=== PATIENT | female | born 1980 | race Caucasian/White ===

== ENCOUNTER 2019-12-20 09:27 | Emergency (ER) | payer OTHER, SELFPAY ==
[2019-12-20 09:28] VITALS: BP 147/100; PULSE 104; RESP 18; TEMP 36.9; O2SAT 98; BMI 27.4
--- NOTE | 2019-12-20 10:08 | ED.DCSUM_ITS ---
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 Tetanus is up-to-date. Past Medical History - Allergies and Home Meds Allergies/Adverse Reactions: Allergies latex Allergy (Verified 12/20/19 09:32) Itching Primary Care Physician: Care Physician,No Primary [Primary Care Provider] - Smoking Status: Former smoker Review of Systems General: Denies: Chills, Fever, Sweats Eyes: Denies: Visual changes - bilaterally, Diplopia ENT: Denies: Rhinorrhea, Sore throat Cardiovascular: Denies: Chest pain, Palpitations Respiratory: Denies: Dyspnea, Cough, Dyspnea on exertion Gastrointestinal: Denies: Abdominal pain, Nausea, Vomiting, Diarrhea, Melena, Hematochezia Genitourinary: Denies: Dysuria, Hematuria, Frequency Musculoskeletal: Denies: Back pain, Extremity Pain Skin: Denies: Rash, Wounds Neurological: Denies: Headache, Weakness, Numbness Physical Exam Vital Signs/Narrative: Vital Signs Temp Pulse Resp BP Pulse Ox 12/20/19 09:28 98.5 F 104 H 18 147/100 H 98 Inital Vital Signs reviewed: Yes General: Well nourished, Well developed, No Acute Distress Head: Normocephalic, Atraumatic Eyes: Perrl, EOMI ENT: Moist mucous membranes, No rhinorrhea Neck: Supple, Nontender Cardiovascular: Regular rate, Regular rhythm, No murmurs Respiratory: No distress, CTA bilaterally, Chest nontender Abdomen: Soft, Nontender, Nondistended, Normal bowel sounds Back: Nontender, Normal Inspection Extremities: No edema, - - There is a 2.5 cm laceration over the PIP joint of the left index finger over the dorsal surface. Extensor mechanism is functionally intact. Skin: Normal color, No rash Neurological: Alert, Oriented x3, Cranial nerves II-XII grossly intact, Normal Strength, Normal Sensation Psychological: Normal affect, Normal Mood Diagnostic/Tx/Re-eval - Medical Decision Making Wound was locally anesthetized with 1% lidocaine with epinephrine. Turnicot was used to create a bloodless field. Upon visualization of the wound the extensor tendon is seen. There appears to be a partial-thickness laceration of the extensor tendon with about 75% of the involved. Wound was washed with Shur- Clens and irrigated with 300 cc of sterile saline. It was closed using 5 interrupted 4-0 Ethilon sutures. Patient was placed in a finger splint. She wi ll be referred to hand surgery. ED Disposition - Plan for ED Patient: Disposition: Home or Assisted Living Diagnosis: Finger laceration, Extensor tendon laceration of finger with open wound Instructions: LACERATION, Hand, LACERATION, Tendon Prescriptions: Cephalexin [Keflex] 500 mg PO Q6 #20 cap Prescription Printed Additional Instructions: Please call [facility] hand surgeons at and inform them that you sustained a work-related extensor tendon laceration of your finger.
== END 2019-12-20 10:25 | disposition home or self-care (01) ==
PROVIDERS: Emergency Provider Emergency Medicine
DX: S66.321A Laceration of extensor muscle, fascia and tendon of left index finger at wrist and hand level, initial encounter (principal); S61.211A Laceration without foreign body of left index finger without damage to nail, initial encounter; W27.8XXA Contact with other nonpowered hand tool, initial encounter; Y93.9 Activity, unspecified; Y92.9 Unspecified place or not applicable; Y99.0 Civilian activity done for income or pay; Z91.040 Latex allergy status; Z87.891 Personal history of nicotine dependence
CPT/HCPCS: 12001; 99284

== ENCOUNTER → 2025-01-23 | Outpatient (CLI) | payer OTHER, SELFPAY ==
--- NOTE | 2025-01-23 13:43 | BI_ITS ---
PROCEDURE: SCRN MAMM (CAD)W/SARANYA BILAT REASON FOR EXAM: F, Age 45 y/o , SCREENING. Aunt with breast cancer. TECHNIQUE: Bilateral screening digital breast tomosynthesis with 2D and 3D images. Computer aided detection. COMPARISON: None. This is a baseline mammogram. FINDINGS: The breasts are extremely dense which lowers the sensitivity of mammography. There is a 2.1 cm x 2.7 cm well-defined nodule in the deep upper lateral aspect of the left breast. Correlation with ultrasound is recommended. BI/SCRN MAMM (CAD)W/SARANYA BILAT IMPRESSION: BI-RADS 0: INCOMPLETE - NEED ADDITIONAL IMAGING EVALUATION. Follow-up code: Ultrasound Recommended The patient will be notified of the results by letter. Reading Location: [place] [address]
== END | disposition home or self-care (01) ==
LOC: OPBI 13:40
PROVIDERS: PCP Nurse Practitioner Adult Health; Referring Provider Nurse Practitioner Adult Health; Visit Provider Nurse Practitioner Adult Health
DX: Z12.31 Encounter for screening mammogram for malignant neoplasm of breast (principal)
CPT/HCPCS: 77063; 77067

== ENCOUNTER → 2025-01-30 | Outpatient (CLI) | payer OTHER, SELFPAY ==
--- NOTE | 2025-01-30 12:29 | US_ITS ---
PROCEDURE: BREAST LIMITED UNILATERAL REASON FOR EXAM: ABN MAMM Left breast nodule. TECHNIQUE: Targeted ultrasound of the upper lateral aspect of the left breast. COMPARISON: Comparison is made with prior mammogram dated January 23, 2025. FINDINGS: LEFT: Left breast ultrasound was targeted to the upper lateral aspect of the breast.. The mammographic abnormality corresponds to a 2.3 cm x 1.7 cm x 1.5 cm cyst at the 2 o'clock position of the breast at 7 cm from the nipple. US/Breast Limited Unilateral IMPRESSION: The mammographic abnormality corresponds to a 2.3 cm x 1.7 cm x 1.5 cm cyst at the 2 o'clock position of the breast at 7 cm from the nipple. BI-RADS category: 2 Follow-up code: Routine Follow-up Reading Location: [place] [address]
== END | disposition home or self-care (01) ==
LOC: OPUS 12:27
PROVIDERS: Visit Provider Nurse Practitioner Adult Health
DX: R92.2 Inconclusive mammogram (principal)
CPT/HCPCS: 76642

== ENCOUNTER → 2025-02-25 | Outpatient (CLI) | payer OTHER, SELFPAY ==
--- NOTE | 2025-02-25 17:55 | US_ITS ---
PROCEDURE: PELVIC W/ TRANSVAGINAL 02/25/2025 REASON FOR EXAM: AUB TECHNIQUE: Transabdominal pelvic ultrasound Transvaginal ultrasound images of the pelvis are provided. COMPARISON: None. FINDINGS: Anteverted uterus measuring 9.1 x 5.9 x 3.8 cm. Intramural uterine fibroid is noted measuring 1 x 1.1 x 0.6 cm. The endometrium is hyperechoic measuring 11.3 mm in its thickness. Please correlate with menstrual history to evaluate the significance of this finding. Normal cervix. No intrauterine device is noted. No free fluid in the pelvic cul-de-sac. The right ovary measures 3.7 x 2.5 x 2.7 cm. Right ovarian cyst measuring 2.3 x 1.4 x 1.4 cm. Right adnexal heterogeneous hyperechoic structure is identified measuring 6.2 x6.5 x 5.2 cm, possibly representing shadowing bowel gas versus dermoid lesion. The left ovary measures 5.6 x 3.3 x 1.9 cm. Left ovarian cyst measuring 4 x 1.7 x 1.3 cm. Normal bilateral ovarian flow without evidence of ovarian torsion. Unremarkable visualized bladder measuring 233 cc in volume. US/Pelvic w/ Transvaginal IMPRESSION: 1. The endometrial thickness is 11.3 mm. Please correlate with menstrual histo ry to evaluate the significance of this finding. 2. Hyperechoic structure in the right adnexal region measuring 6.5 cm, possibly representing shadowing bowel gas versus dermoid lesion. 3. Bilateral simple ovarian cysts are noted with the largest on the left measur ing 4 cm. 4. Normal bilateral ovarian flow without evidence of ovarian torsion. Reading [facility] [address]
== END | disposition home or self-care (01) ==
LOC: US 17:52
PROVIDERS: PCP Nurse Practitioner Adult Health; Referring Provider Nurse Practitioner Women's Health; Visit Provider Nurse Practitioner Women's Health
DX: N93.9 Abnormal uterine and vaginal bleeding, unspecified (principal)
CPT/HCPCS: 76830; 76856

== ENCOUNTER 2025-03-19 12:20 | Day surgery (SDC) | payer OTHER, SELFPAY ==
[2025-03-19] VITALS (10 sets, daily range): BP systolic 129–148; BP diastolic 86–100; PULSE 93–116; RESP 16–18; TEMP 36.4–37.7; O2SAT 92–98; BMI 31.1
--- NOTE | 2025-03-19 11:46 | PCM.HP.BLA ---
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 Required: No Is patient in pain?: Yes (right lower pelvic pain) Allergies latex Allergy (Verified 03/13/25 14:56) Itching Medications ?Medication ?Instructions ?Recorded ?Confirmed ?Type bupropion HCl 75 mg tablet 150 mg PO QDAY 02/21/25 03/13/25 History fluoxetine 40 mg capsule (Prozac) 40 mg PO QDAY 02/21/25 03/13/25 History levonorgestrel 0.15 mg-ethinyl 1 tab PO DAILY #28 tabs 02/21/25 03/13/25 Rx estradiol 0.03 mg tablet (Altavera (28)) Is last menstrual period known: Yes Last Menstrual Period: 02/11/25 Post menopausal: No Patient : No : No PFSH Medical History PTSD (post-traumatic stress disorder) Anxiety Depression Former smoker Surgical History (Updated 03/13/25 @ 15:[address] 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 she has been having increasing pain over the last 9 months, she has had periods that were heavy in the past and she has bene controlled with altavera. she had an ultrasound that showed right large possible demroid cyst and left irregular cyst also. intemrittent pain but no torsion seen. Female Reproductive History Last Menstrual Period: 02/11/25 Menopausal Symptoms: No night sweats History 0 Elective abortions Hx Para Spontaneous abortions Hx # Term Pregnancies Ectopic pregnancies Hx # Pregnancies Multiple births # of living children ROS Const Constitutional: Denies fatigue, night sweats, weight gain or weight loss ENT ENT: Reports system reviewed and no additional complaints, except as documented Cardio Card: Denies chest pain Resp Resp: Denies cough or dyspnea GI GI: Reports as per HPI and abdominal pain; Denies constipation, nausea or vomiting : Denies nipple discharge, urinary frequency, urinary incontinence, urinary hesitancy, urinary urgency, vaginal discharge, vaginal dryness, vaginal odor or vaginal pruritus Musc Musc: Denies arthralgias, back pain or muscle weakness Skin Skin/Breast: Denies alopecia, change in hair, dry skin, breast mass, breast pain, breast skin changes or nipple discharge Neuro Neuro: Reports system reviewed and no additional complaints, except as documented Psych Psych: Reports system reviewed and no additional complaints, except as documented Endo Endo: Denies cold intolerance, excessive sweating, heat intolerance or polydipsia Mushtaq/Lymph Hematologic/Lymphatic: Denies easy bleeding, Denies easy bruising and Denies lymphadenopathy Exam Const General: cooperative, healthy appearing, comfortable and no acute distress Orientation: alert HENMT Head: normal to inspection and normocephalic Ears: hearing grossly normal bilaterally and external ears normal Nose: external nose normal and nares normal Face and sinus: normal facial exam Neck Neck: normal visual inspection and no lymphadenopathy Thyroid: thyroid normal Chest Chest palpation & inspection: normal inspection of the chest Resp Effort & Inspection: normal respiratory effort Auscultation: clear to auscultation bilaterally Cardio Rate: regular rate Rhythm: regular rhythm Heart Sounds: S1 normal and S2 normal GI Inspection: normal to inspection and non-distended Palpation: soft and no hepatosplenomegaly Musc Other: gross motor intact no deficits, full bilateral strength Skin General: no rashes or lesions noted Neuro General: patient alert, patient awake, moves all extremities and no focal motor deficits Motor: muscle tone normal throughout Extrem General: normal to inspection and no pedal edema Psych Appearance: grossly normal Mental Status: mental status grossly normal Affect: normal affect Speech and Movement: speech and movement normal Coding Level of Care Code Off vis,est,level 4 Diagnoses Dermoid cyst D36.9 Ovarian cyst N83.209 Assessment and Plan Assessment and Plan (1) Dermoid cyst: Status: Acute Comment: right 6.5cm/surgical consult. plan laparosocpic bilateral ovarian cystectomies possible oophorectomy (2) Ovarian cyst: Status: Acute Comment: bilateral simple up to 4cm. Plan After discussing the patient's diagnosis and treatment plan options, patient wishes to proceed with surgical management. I have discussed with the patient the risks, benefits, and alternatives of the procedure which include but are not limited to risks of anesthesia, bleeding, infection, possible damage to bowel, bladder, or surrounding vasculature which could lead to additional surgery to evaluate any complications. Patient agrees to procedure and wishes to proceed. ACOG/uptodate references given for additional information regarding procedure.
[2025-03-19] MEDS: Lactated Ringers 1,000 ML 15 ML IV (12:55)
[2025-03-19 13:04] LABS: Hematocrit 38.7 % (37-47); Hemoglobin 13.3 g/dL (12.0-15.0); Mean Corp Hgb Conc 34.4 g/dL (32-36); Mean Corpuscular Volume 81.5 fL (81-99); Mean Platelet Vol. 9.3 fl (6.2-12.0); Platelet Count 362 K/mm3 (150-450); RBC Distribution Width CV 14.5 % (11.6-14.6); RBC Distribution Width SD 42.8 fl (35.1-43.9); Red Blood Count 4.75 M/mm3 (4.2-5.4); White Blood Count 7.2 K/mm3 (4.4-11.0)
[2025-03-19 13:05] LABS: Internal QC Validated? YES +Cl - CLEAR BKGD; Pregnancy, Urine Negative Negative
--- NOTE | 2025-03-19 13:34 | PRE.ANES_ITS ---
ASA Classification* ASA Classification ASA Classification: 2 Assessment & Plan Anesthesia* Anesthesia Assessment Anesthesia Assessment: Discussed sedation and/or anesthesia options, risks, benefits, and alternatives with patient/parents/legal guardian/POA. Questions invited. The patient/parents/legal guardian/POA seems to understand and agrees to proceed with anesthesia plan. Reviewed the physical assessment, medical history, allergy history and patient home medications list prior to surgery/procedure/anesthetic and documented any changes. Performed airway and anesthesia risk assessments. Anesthesia Type Anesthesia Type: General History Source History Obtained from:: Patient and Chart Anesthesia Focused Assessment* Temperature: 97.5 F Pulse Rate: 93 Blood Pressure: 129/87 Respiratory Rate: 16 Pulse Ox: 98 Oxygen Delivery Method: Room Air Airway Assessment Mouth opens: >3 cm Mallampati Score: IV Teeth Condition: Caps/Crowns (Tooth #10 has a crown. 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 When Was Last Pacemaker Check QUESTION #4 FULL TEXT: You/Your Family Experience fever (hyperthermia) with Anesthesia Last Oral Intake Last Oral intake: Last Oral Intake NPO since 04:00 03/19/25 12:56 Meds taken in AM with sips of No 03/19/25 12:56 water? 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 Female Yes 03/05/25 11:06 HX of Motion Sickness No 03/05/25 11:06 HX of N/V After Surgery No 03/05/25 11:06 Non-Smoker Yes 03/05/25 11:06 Duration of Surgery greater No 03/05/25 11:06 than 60 minutes Number of Risk Factors 2 03/05/25 11:06 PONV Score Moderate Risk 03/05/25 11:06 Height & Weight Height & Weight: Anesthesia: Height & Weight Height 5 ft 7 in 03/19/25 12:56 Weight: 90 kg 03/19/25 12:56 Body Mass Index (BMI) 31.1 03/19/25 12:56 Respiratory Assessment Respiratory Assessment - metal coater operator: Respiratory Tract Infection Hx - metal coater operator Hx Respiratory Tract Infection No 03/05/25 11:06 STOP Sleep Apnea STOP Sleep Apnea - metal coater operator: STOP Sleep Apnea - metal coater operator Hx Hypertension No 03/05/25 11:06 Hx Sleep Apnea No 03/05/25 11:06 CPAP BIPAP Do you snore loudly (louder No 03/05/25 11:06 than talking or can be heard Do you often feel tired/ No 03/05/25 11:06 fatigued/ sleepy during daytime? Has anyone observed you stop No 03/05/25 11:06 breathing during sleep? STOP Results Negative 03/05/25 11:06 QUESTION #5 FULL TEXT : Do you snore loudly (louder than talking or can be heard through closed doors)? 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 Specify any problems Hx of Preganancy in last 3 No 03/05/25 11:06 Months Nurse Filling Out Transfusion VLEHMAN 03/05/25 11:06 & Questions: Date: 03/05/25 03/05/25 11:06 Time: 11:11 03/05/25 11:06 Patient unable to answer at this time (ie. confused, unrespo /Reproduction History /Reproductive History - metal coater operator: /Reproductive Hx- metal coater operator Hx Now No 03/05/25 11:06 Gestational Age (in weeks): EDC: Hx Hx Para Hx Section SAB No 03/13/25 14:57 Active Medications Active Medications: Current Medications Generic Name Dose Route Start Last Admin Trade Name Freq PRN Reason Stop Dose Admin Lactated Ringer's 1,000 mls @ 15 mls/hr 03/19/25 12:30 03/19/25 12:55 IV 15 mls/hr .Q48H KANG Administration PFSH Medical History PTSD (post-traumatic stress disorder) Anxiety Depression Former smoker Home Medications ?Medication ?Instructions ?Recorded ?Last Taken ?Type bupropion HCl 75 mg tablet 150 mg PO QDAY 02/21/2504/07 History fluoxetine 40 mg capsule (Prozac) 40 mg PO QDAY 03/18/25 History levonorgestrel 0.15 mg-ethinyl 1 tab PO DAILY #28 tabs 02/21/25 03/18/25 Rx estradiol 0.03 mg tablet (Altavera (28)) Allergy/AdvReac Type Severity Reaction Status Date / Time latex Allergy Itching Verified 03/19/25 12:53 Family History Father Myocardial infarction, Onset Age: 47 Mother Diabetes Lupus Rheumatoid arthritis Fibromyalgia Endometriosis Surgical History H/O neck surgery Social History adopted: No number of children: 0 current occupational status: unemployed sexually active: Yes Smoking Status: Former smoker alcohol intake: never substance use type: does not use what type of physical activity do you participate in: walking frequency: 3-4 times per week seatbelt use: always do you feel safe at home: Yes 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
--- NOTE | 2025-03-19 14:10 | FALS_PTH ---
PATIENT: ASHA LU LOC: [facility] [place] U#:[id number] AGE/SX: 45/F ROOM: RE03/19/[address]: Dr. Reyna Padron MD : 1980 BED: DIS: 03/19/2025 SPEC #: [id number] RECD: 03/20/25 09:36 STATUS: MARELY REPolo #: [id number] GABBIE: 03/19/25 14:[address]: Reyna Padron DEPT: SURGICAL PATHOLOGY RECD BY: Gary Clark ENTERED: 03/20/25 10:43 SP TYPE: FALL TUBES OTHR DR: Meredith Walls NP Tissues: A - Fallopian tube Procedures: Surgery Specimen Level II HEADER OPERATION: Laparoscopic right ovarian cystectomy, bilateral salpingectomy PRE-OP DIAGNOSIS: Bilateral ovarian cysts, pelvic pain, right ovarian dermoid cyst and bilateral hydrosalpinx TISSUE SUBMITTED: A- Right ovarian dermoid cyst and bilateral fallopian tubes MICROSCOPIC DIAGNOSIS A. Right ovary, bilateral fallopian tubes, right ovarian cystectomy and bilateral salpingectomy: * Mature cystic teratoma * Benign fallopian tubes with complete cross sections obtained and acute salpingitis MICROSCOPIC DESCRIPTION Slides are reviewed. GROSS DESCRIPTION A. Received in formalin in a container labeled with the patient's name, date of , and right ovarian dermoid cyst and bilateral fallopian tubes is a previously disrupted 22.3 g cystic structure with an abundance of protruding dubon hair measuring 4.3 x 4.2 x 2.7 cm overall. The intact portion of the outer surface is purple-dickinson with wispy adhesions (inked black). It is opened to reveal that the cystic structure is completely filled with adherent brown hair and a scant amount of yellow caseous material. The inner lining is notable for a 2.0 x 1.6 x 1.8 cm dubon and hairbearing nodule. Sectioning of the nodule reveals softened yellow surfaces with a calcified white center, resembling a tooth. Received in the same container is a roughened fallopian tube with a fimbriated end measuring 4.5 cm in length with an average diameter of 0.7 cm. Sectioning reveals a pinpoint lumen.There is a detached 1.9 x 1.5 x 0.7 cm unremarkable fimbriated end. Additionally, there is a 2.4 cm in length by 1.2 cm in diameter previously disrupted tubular structure sectioned to reveal a possible pinpoint lumen. Heddle Machine Operator sections:A1-4. Cystic ovary with nodule (at least 2 sections per centimeter)A5. Intact fallopian tubeA6. At disrupted fallopian tube [facility] 03-20-2025 CPT:[id number]
[2025-03-19] MEDS: Bupivacaine 0.25% 30 ML Vial (15:45)
--- NOTE | 2025-03-19 17:31 | PCM.POST.ANE ---
Anesthesia: Postop Eval I Current Vital Signs Temperature: 99.0 F Pulse Rate: 108 Blood Pressure: 129/87 Respiratory Rate: 18 Pulse Ox: 95 Oxygen Delivery Method: Room Air Assessment Airway patent: Yes Spontaneous unlabored respirations: Yes Mental status: Awake nausea: No Vomiting: No Anesthesia Complication: No Fluid Hydration Crystalloid volume administer (ml): 1,500 Total IV fluid infused: 1,500 Progress Note Anesthesia document: Postop Eval 1 completed: Yes
--- NOTE | 2025-03-19 17:45 | PCM.OPRPT ---
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 Clerk Checker: Hebert Lofton Tasks completed by airplane first officer: Opening & closing, Altering tissue and Insert Trochanter Additional store administrative assistant?: No Type of Anesthesia: General RN Documented Start/Stop Times: Operation Date: 03/19/25 14:10 Case Time Into Pre-Op 03/19/25 12:22 Out of Pre-Op 03/19/25 15:13 Anesthesia Start 03/19/25 15:18 Into Room 03/19/25 15:18 Procedure Start 03/19/25 15:41 Procedure End 03/19/25 17:11 Anesthesia End 03/19/25 17:20 Out of Room 03/19/25 17:20 Into Recovery 03/19/25 17:22 Procedure Start Time: 15:41 Procedure Stop Time: 17:11 Select all DRAINS/GRAFTS/IMPLANTS that apply: None Estimated Blood Loss: 150 Specimen collected: Yes Description of specimen(s) removed: Right ovarian cyst bilateral tubes Description of surgery: Patient was taken in the operating room and was placed under general anesthesia was prepped and draped in normal sterile fashion in the dorsal lithotomy position. Bladder was drained of clear urine and SCDs were on preoperatively. Uterus was sounded and a uterine manipulator was placed after dilating. Attention was then paid to the abdominal portion of the procedure and the umbilicus was elevated with towel clamps and injected with Marcaine and after a 5 mm incision was made and the Veress needle was entered into the abdomen confirmed to be intra-abdominal with a low opening pressure of less than 5 mmHg. Abdomen was insufflated with CO2 gas and a 5 mm optical trocar was placed under direct visualization. Left and right lower quadrant 5 mm ports were placed under direct visualization. Uterus was well visualized and upon inspection of the pelvis adhesions were noted which were taken down with the LigaSure device mobilizing the sigmoid colon from the left side of the pelvic sidewall and the left adnexa. Hydrodissection was used also. Bilateral tubes were noted to be significantly abnormal and enlarged at this time I went and spoke to the patient's to obtain consent for bilateral salpingectomy which he gave. Bilateral tubes were elevated and removed after dissecting them out they were noted to be significantly hydropic and sclerotic and abnormal. Better visualization was then seen of the bilateral ovaries and the left ovary was actually noted to be within normal limits with no significant abnormal appearance. It was freed up from its adhesions within the ovarian fossa without complication. The right ovary was noted to be significantly enlarged with a cyst and therefore a longitudinal incision was made with the monopolar energy and a cystectomy performed by shelling out the dermoid cyst within. Sebaceous material and hair was noted inside the ovarian cyst. The base of the ovary was then cauterized and Surgiflo used to obtain hemostasis. All tissue removed through a 5 mm bag through the left lower quadrant port which was enlarged and using a Mayco Martin a fascial suture was placed with 0 Vicryl.. Excellent hemostasis was noted in the pelvis. Liver and upper abdomen were visualized notably within normal limits and no other gross abnormalities were seen in the abdomen. All instruments removed from the abdomen after gas was desufflated. Port sites were closed with 3-0 Monocryl Steri's and op sites were applied. All instruments removed from the vagina and patient was awoken and taken recovery in stable condition. Surgical Findings: Bilateral tubal hydrops with sigmoid colon adhesions to the left pelvis significant ovarian adhesions to the fossa bilaterally right cystic ovary with dermoid Complications Complications: No
--- NOTE | 2025-03-19 17:45 | PCM.DC ---
Discharge Instructions Diet Discharge Diet: No restrictions DC O2, CPAP, BIPAP needs Home O2 Discharge instructions: No Dressing / Incision Discharge Activity: Return to Normal Activity, May Not Drive ( while taking narcotic pain meds, when pain free), May Shower and May Take a Tub Bath (in 7 days) May resume sexual activity in: 1 week Weight Bearing Status: Full weight bearing Dressing / Incision Call your doctor if your incision/area has: Continuous Slow Oozing, Sudden Increased Bleeding, Increased Pain/ Swelling, Increased Redness and Foul Smelling Discharge Call your doctor if you observe: Fever of 101 or Higher, Using more than 1 pad per hour, Shortness of breath, Chest pain and Uncontrolled pain Suture Line Care: Avoid Pulling/Pushing and Avoid Pinching/Bending Remove Dressing in: 1 week (if present) Cleanse incision/area with: Soap & Water and Keep Dressing Clean & Dry Follow Up Care When: Call to make an appointment with your doctor for a fu/incision check in 1-2 weeks. Test Results: Test results from this visit will be discussed in further detail at your follow-up appointment, if applicable. Discharge Plan Admission Attending Provider: Reyna Padron Primary Care Provider: Meredith Walls NP Instructions Print Language: Palestinian Discharge Orders/Prescriptions Prescriptions: New oxycodone-acetaminophen [Percocet] 5-325 mg tablet 1 tab PO Q4H PRN (Reason: pain) 7 Days Qty: 20 0RF naproxen 500 mg tablet 500 mg PO BID PRN PRN (Reason: Pain) Qty: 30 1RF No Action fluoxetine [Prozac] 40 mg capsule 40 mg PO QDAY bupropion HCl 75 mg tablet 150 mg PO QDAY levonorgestrel-ethinyl estrad [Altavera (28)] 0.15-0.03 mg tablet 1 tab PO DAILY Qty: 28 3RF Referrals / Follow Up: Meredith Walls NP [Primary Care Provider] - Disposition Disposition (needs filled in before D/C Order can be placed): Home, Self Care
[2025-03-19] MEDS: HYDROcodone Bitartrate/Apap 5/325 Tablet PO (18:34)
--- NOTE | 2025-03-19 18:52 | POSTOPAN2_ITS ---
Anesthesia Postop Eval I Sum Postop Eval Completion status Anesthesia document: Postop Eval 1 completed: Yes Anesthesia Postop Eval I Summary Anesthesia Postop Eval I Summary: Anesthesia Postop Eval I: Assessment Summary Airway patent Yes 03/19/25 17:31 [email or web address] Spontaneous unlabored Yes 03/19/25 17:31 [email or web address] respirations Mental status Awake 03/19/25 17:31 [email or web address] nausea No 03/19/25 17:31 [email or web address] Vomiting No 03/19/25 17:31 [email or web address] Anesthesia Postop Eval I: Fluid Summary Crystalloid volume administer 1,500 03/19/25 17:31 [email or web address] (ml) Colloids volume administered ( ml) Blood Product volume administered (ml) Total IV fluid infused 1,500 03/19/25 17:31 [email or web address] Anesthesia Postop Eval I: Summary Notes Anesthesia Complication No 03/19/25 17:31 [email or web address] Anesthesia Complication Comment: Post-operative progress note Anesthesia: Postop Eval II Evaluation Mental status: Awake and Calm Pain Level: 1 nausea: No Vomiting: No Complications Anesthesia Complication: No
--- NOTE | 2025-03-19 18:52 | PCM.POSTANE2 ---
Anesthesia Postop Eval I Sum Postop Eval Completion status Anesthesia document: Postop Eval 1 completed: Yes Anesthesia Postop Eval I Summary Anesthesia Postop Eval I Summary: Anesthesia Postop Eval I: Assessment Summary Airway patent Yes 03/19/25 17:31 [email or web address] [email or web address] Spontaneous unlabored Yes 03/19/25 17:31 CLUBHOUSE [email or web address] respirations Mental status Awake 03/19/25 17:31 CLUBHOUSE [email or web address] nausea No 03/19/25 17:31 CLUBHOUSE [email or web address] Vomiting No 03/19/25 17:31 [email or web address] [email or web address] Anesthesia Postop Eval I: Fluid Summary Crystalloid volume administer 1,500 03/19/25 17:31 [email or web address] [email or web address] (ml) Colloids volume administered ( ml) Blood Product volume administered (ml) Total IV fluid infused 1,500 03/19/25 17:31 CLUBHOUSE [email or web address] Anesthesia Postop Eval I: Summary Notes Anesthesia Complication No 03/19/25 17:31 CLUBHOUSE [email or web address] Anesthesia Complication Comment: Post-operative progress note Anesthesia: Postop Eval II Evaluation Mental status: Awake and Calm Pain Level: 1 nausea: No Vomiting: No Complications Anesthesia Complication: No
== END 2025-03-19 18:55 | disposition home or self-care (01) ==
LOC: SDC 12:20 → AC 12:21
PROVIDERS: Anesthesiology; PCP Nurse Practitioner Adult Health; Referring Provider Obstetrics & Gynecology; Visit Provider Obstetrics & Gynecology
PROC: (CPT 58720; principal; 2025-03-19 13:55)
DX: N93.9 Abnormal uterine and vaginal bleeding, unspecified (principal); D27.0 Benign neoplasm of right ovary; N70.01 Acute salpingitis; N73.6 Female pelvic peritoneal adhesions (postinfective); F32.A Depression, unspecified; F41.9 Anxiety disorder, unspecified; Z79.899 Other long term (current) drug therapy; Z87.891 Personal history of nicotine dependence
CPT/HCPCS: 58662; 58661; 81025; 85027; 86850; 86900; 86901; 88302; J2405

== ENCOUNTER → 2025-11-01 | Outpatient (CLI) | payer OTHER, SELFPAY ==
--- NOTE | 2025-11-01 15:28 | US_ITS ---
PROCEDURE: PELVIC W/ TRANSVAGINAL 11/01/2025 REASON FOR EXAM: PELVIC PAIN 1st day of last menstrual period was 10/17/2025 TECHNIQUE: Procedure Code: [id number] Modality: US Procedure: PELVIC W/ TRANSVAGINAL COMPARISON: Pelvic ultrasound dated 02/25/2025 FINDINGS: Measurements: Uterus: 10.0 x 6.4 x 4.9 cm with a volume of 163 mL Endometrial Thickness: 1.6 cm Right Ovary: 4.5 x 3.0 x 2.7 with a volume of 19 mL. Left Ovary: 5.1 x 4.6 x 3.1 with a volume of 39 mL. Uterus: The uterus is anteverted. The myometrium of the uterus demonstrates heterogeneous echotexture. Underlying uterine fibroids could be obscured. Endometrium: 1.6 cm. 1st day of last menstrual period was 10/17/2025. The endometrial stripe has heterogeneous echotexture. The wall of the endometrium is hyperechoic and irregular. This could represent endometrial polyps however, since it appears to be within the myometrium, another more likely consideration would be endometrial hyperplasia or submucosal fibroid. Another consideration would be endometrial cancer or endometritis. A VENDOR MANAGER consult and MRI examination may be of value for further evaluation if clinically indicated. Cervix: Within normal limits Right ovary: Size, contour and echogenicity are within normal limits. There are no masses. There is normal blood flow to the ovary. There is no evidence of ovarian torsion. Left ovary: Size and echogenicity are within normal limits. There are benign- appearing cystic masses seen. The largest measures 3.8 x 2.6 x 2.2 cm. There is blood flow to the ovary. There is no evidence of ovarian torsion. Other: There is no free fluid in the cul-de-sac. Urinary bladder volume is 426 mL. Bladder wall appears smooth and not abnormally thick. US/Pelvic w/ Transvaginal IMPRESSION: The endometrial stripe has heterogeneous echotexture. The wall of the endometr ium is hyperechoic and irregular. This could represent endometrial polyps however, since it appears to be within the myometr ium, another more likely consideration would be endometrial hyperplasia or submucosal fibroid. Another consideration would be e ndometrial cancer or endometritis. A VENDOR MANAGER consult and MRI examination may be of value for further evaluation if clinically indica chuy. TR2 There are benign-appearing left ovarian simple cystic masses seen. The l argest measures 3.8 x 2.6 x 2.2 cm. Follow-up pelvic ultrasound in 1 year is recommended for re-evaluation. Reading Location: [id number]
== END | disposition home or self-care (01) ==
LOC: US 15:26
PROVIDERS: PCP Nurse Practitioner Adult Health; Referring Provider Obstetrics & Gynecology; Visit Provider Obstetrics & Gynecology
DX: R10.20 Pelvic and perineal pain unspecified side (principal); Z98.890 Other specified postprocedural states; Z87.42 Personal history of other diseases of the female genital tract
CPT/HCPCS: 76830; 76856